=== PATIENT | female | born 1965 | race Caucasian/White ===

== ENCOUNTER → 2017-10-18 | Outpatient (CLI) | payer OTHER ==
[~2017-10-18] MED LIST: ACET1TAB84 PO; ASPI81TA28 PO; BNT20 PO; FLUO20CA35 PO; LORA-741 PO; MELO7.5T5 PO; PANT40TA PO; ROPI0.25 PO; TIZA4CAP PO; TRAM-10 PO; TRAZ50TA35 PO
--- NOTE | 2017-10-18 15:51 | DIAGNOSTIC IMAGING REPORT ---
(CHEST) THORAX WITHOUT CT DOSE: 179.75 mGy.cm HISTORY: Lung nodule ABN CHEST XRAY TECHNIQUE: Multiaxial CT images of the chest were performed without contrast. A dose lowering technique was utilized adhering to the principles of ALARA. COMPARISON: Chest series 10/17/2017 FINDINGS: The lungs are clear. The mediastinal vascular structures are within normal limits. No mediastinal or hilar lymphadenopathy. No pleural effusion or pneumothorax. Limited views of the upper abdomen demonstrate a normal liver and spleen. Nodular density seen on routine chest series appear to relate to overlap technical artifact. IMPRESSION: No acute process. Routine film chest series findings appears to relate to overlap artifact The above report was generated using voice recognition software. It may contain grammatical, syntax or spelling errors. Electronically signed by: Miguel Michele M.D. 10/18/2017 3:49 PM Dictated Date/Time: 10/18/2017 3:47 PM
== END | disposition home or self-care (01) ==
LOC: C.CTS 15:22
PROVIDERS: ATTEND Orthopaedic Surgery Orthopaedic Surgery of the Spine
DX: R93.8 Abnormal findings on diagnostic imaging of other specified body structures (principal)

== ENCOUNTER 2017-10-30 06:08 | Observation (INO) | payer OTHER ==
[2017-10-17 09:49] VITALS: BMI 22.0
--- NOTE | 2017-10-17 10:29 | PAT Medication Instructions ---
Service Date Oct 17, 2017. Current Home Medication List Acetaminophen (Tylenol Arthritis Ext Rel), 1,300 MG PO Q8H PRN for PRN Aspirin (Aspirin Ec), 81 MG PO QAM Dicyclomine HCl (Dicyclomine HCl), 20 MG PO QID PRN for RN Fluoxetine (Prozac), 20 MG PO QAM Lorazepam (Ativan), 0.5 MG PO PRN Meloxicam (Mobic), 15 MG PO PRN Pantoprazole (Protonix), 40 MG PO QAM Ropinirole (Requip), 0.25 MG PO HS Tizanidine (Zanaflex), 4 MG PO BID PRN for PRN Tramadol (Ultram), 50 MG PO Q8H PRN for Pain Trazodone Hcl (Trazodone), 50 MG PO HS Medication Instructions For Your Scheduled Surgery - Check with surgeon for instructions: Meloxicam (Mobic), 15 MG PO PRN Aspirin (Aspirin Ec), 81 MG PO QAM - Hold the following medications 24 hours prior to surgery: Ropinirole (Requip), 0.25 MG PO HS - Hold the following medications the morning of surgery: Dicyclomine HCl (Dicyclomine HCl), 20 MG PO QID PRN for RN Tizanidine (Zanaflex), 4 MG PO BID PRN for PRN - Take the following medications the morning of surgery with a sip of water: Tramadol (Ultram), 50 MG PO Q8H PRN for Pain (okay to take up to 4 hours prior to surgery if needed) Acetaminophen (Tylenol Arthritis Ext Rel), 1,300 MG PO Q8H PRN for PRN(okay to take up to 4 hours prior to surgery if needed) Pantoprazole (Protonix), 40 MG PO QAM Lorazepam (Ativan), 0.5 MG PO PRN Fluoxetine (Prozac), 20 MG PO QAM - Take the following medications as scheduled the night before surgery: Trazodone Hcl (Trazodone), 50 MG PO HS Tramadol (Ultram), 50 MG PO Q8H PRN for Pain (if needed) Tizanidine (Zanaflex), 4 MG PO BID PRN for PRN (if needed) Lorazepam (Ativan), 0.5 MG PO PRN Acetaminophen (Tylenol Arthritis Ext Rel), 1,300 MG PO Q8H PRN for PRN (if needed) Dicyclomine HCl (Dicyclomine HCl), 20 MG PO QID PRN for RN If you have any questions please call us at [phone] or [phone] or [phone]
--- NOTE | 2017-10-17 11:13 | DIAGNOSTIC IMAGING REPORT ---
CHEST 2 VIEWS ROUTINE CLINICAL HISTORY: Preoperative chest COMPARISON STUDY: No previous studies for comparison. FINDINGS: The cardiac and mediastinal contours are normal. There is no evidence of focal pulmonary consolidation. There is no evidence of failure. No pleural effusions are visualized.[There is an 8 mm right lower lobe pulmonary nodule. IMPRESSION: Indeterminate 8 mm right lower lobe pulmonary nodule. A chest CT is recommended in follow-up. Electronically signed by: Jarod Pablo M.D. 10/17/2017 11:11 AM Dictated Date/Time: 10/17/2017 11:07 AM
[2017-10-17 12:17] LABS: BASO % 0.3 %; BASO ABS # 0.04 K/uL (0-0.2); EOS % 2.5 %; EOS ABS # 0.29 K/uL (0-0.5); HEMATOCRIT 39.9 % (37-47); HEMOGLOBIN 13.4 g/dL (12.0-16.0); IG# 0.03 K/uL (0.00-0.02); LYMPH % 22.9 %; LYMPH ABS # 2.68 K/uL (1.2-3.4); MEAN CELL VOLUME 97.1 fL (80-100); MEAN CORPUSCULAR HEMOGLOBIN 32.6 pg (25-34); MEAN CORPUSCULAR HGB CONC 33.6 g/dl (32-36); MEAN PLATELET VOLUME 10.8 fL (7.4-10.4); MONO % 10.5 %; MONO ABS # 1.23 K/uL (0.11-0.59); NEUT % 63.5 %; NEUT ABS # 7.41 K/uL (1.4-6.5); PLATELET COUNT 256 K/uL (130-400); RED CELL DISTRIBUTION WIDTH CV 13.1 % (11.5-14.5); RED CELL DISTRIBUTION WIDTH SD 46.3 fL (36.4-46.3); WHITE BLOOD COUNT 11.68 K/uL (4.8-10.8)
[2017-10-17 12:27] LABS: CALCIUM 8.9 mg/dl (8.5-10.1); CREATININE 0.71 mg/dl (0.60-1.20)
[~2017-10-30] VITALS: Ht 154.9 cm; Wt 53.4 kg
[2017-10-30] VITALS (15 sets, daily range): BP systolic 100–131; BP diastolic 64–82; PULSE 54–94; TEMP 36.3–37.8; O2SAT 94–98; Ht 154.9 cm; Wt 53.4 kg
[~2017-10-30 06:08] MED LIST changes: +CEFAZOLIN 1000MG IV PUSH 5 ML IV SCH; +LACTATED RINGER'S 1000ML 1,000 ML IV SCH
[2017-10-30] MEDS ORDERED: MIDAZOLAM HCL 1 MG/ML 2ML VIAL ONE (06:38)
[2017-10-30] MEDS ORDERED: FENTANYL CITRATE INJ 50 MCG/1 ML 2 ML VIAL ONE ×3 (06:38→08:01)
[2017-10-30] MEDS ORDERED: SODIUM CHLORIDE 0.9% PF 50 ML VIAL ONE (06:53)
[2017-10-30] MEDS ORDERED: BACITRACIN 50000 UNIT VIAL ONE ×2 (06:53→08:04)
--- NOTE | 2017-10-30 07:31 | History & Physical Bridge Note ---
H&P Re-Evaluation Bridge Note: I have examined the patient, reviewed the History & Physical and in the interval since the performance of the History & Physical I have noted the following changes of clinical significance: No changes noted
--- NOTE | 2017-10-30 07:32 | History and Physical ---
History & Physical Date Oct 30, 2017. Chief Complaint Neck and arm pain History of Present Illness The patient is a 52 year old female with complaints of neck and arm pain Additional History Hepatic Disease: No Endocrine Disorder: No Kidney Disease: No Hypertension: No Heart Disease: No Bleeding Tendencies: No Infectious Diseases: No Allergies Coded Allergies: Morphine (Verified Allergy, Unknown, ARMS LEGS TIGHTEN UP-CRAMPING, ) Home Medications Scheduled Aspirin (Aspirin Ec), 81 MG PO QAM Fluoxetine (Prozac), 20 MG PO QAM Lorazepam (Ativan), 0.5 MG PO PRN Meloxicam (Mobic), 15 MG PO PRN Pantoprazole (Protonix), 40 MG PO QAM Ropinirole (Requip), 0.25 MG PO HS Trazodone Hcl (Trazodone), 50 MG PO HS Scheduled PRN Acetaminophen (Tylenol Arthritis Ext Rel), 1,300 MG PO Q8H PRN for PRN Dicyclomine HCl (Dicyclomine HCl), 20 MG PO QID PRN for RN Tizanidine (Zanaflex), 4 MG PO BID PRN for PRN Tramadol (Ultram), 50 MG PO Q8H PRN for Pain Physical Examination Skin: warm/dry, no rash Eyes: normal inspection, EOMI, sclerae normal ENT: normal ENT inspection, pharynx normal Head: normocephalic, atraumatic Neck: supple, no adenopathy, trachea midline Respiratory/Chest: lungs clear, normal breath sounds, no respiratory distress Cardiovascular: regular rate, rhythm, no edema, no murmur Abdomen / GI: normal bowel sounds, non tender Back: normal inspection Extremities: normal inspection, normal range of motion Neurologic/Psych: no motor/sensory deficits, alert, normal reflexes, oriented x 3 Diagnosis Cervical spinal stenosis Plan of Treatment ACDF C5-C6 C6 7
[2017-10-30] MEDS ORDERED: EpHEDrine SULFATE INJ 50 MG/ML AMP IV PRN (08:00)
[2017-10-30] MEDS ORDERED: HYDROmorphone INJ 2 MG/ML SYR/VIAL IV PRN (08:00)
[2017-10-30] MEDS ORDERED: PHENYLEPHRINE 100MCG/ML 5ML SYR IV PRN (08:00)
[2017-10-30] MEDS ORDERED: ONDANSETRON INJ 2 MG/ML 2 ML VIAL IV PRN ×2 (08:00→09:00)
[2017-10-30] MEDS ORDERED: ATROPINE SULFATE 0.1 MG/ML 5ML SYR IV PRN (08:00)
[2017-10-30] MEDS ORDERED: HYDROmorphone INJ 2 MG/ML SYR/VIAL ONE ×3 (08:01→09:17)
[2017-10-30] MEDS ORDERED: FLOSEAL HEMOSTATIC MATRIX 5ML TOP ONE (08:52)
--- NOTE | 2017-10-30 08:59 | [facility] Operative Report ---
Operative Report Operative Date Oct 30, 2017. Pre-Operative Diagnosis Cervical Spinal Stenosis Post-Operative Diagnosis Same as preoperative Procedure(s) Performed #1 anterior cervical discectomy bilateral foraminotomies C5 6 and C6 7. #2 anterior cervical arthrodesis C5 6 and C6 7. #3 placement of cortical allograft filled with DBM 7 mm at C5 6 and 6 mm at C6 7. #4 application of Paul plate and screws C5 [address] Dylan Ernandez [employer] Surgeon(s) Angella Hanna PA-C Estimated Blood Loss 50ml Findings Cervical spinal stenosis Specimens None per surgeon Description of Procedure Patient was met with preoperatively case discussed all questions addressed. After informed consent obtained patient was taken to the operative suite underwent intubation and placed in a supine position on the Diogo table with the head in the [place] headholder. All bony prominences well-padded ice inspected to ensure no external pressure placed upon them. At this point the anterior cervical spine was prepped and draped in normal sterile fashion. With the assistance of fluoroscopy identified the C6 vertebral body. Transverse incision was placed on the right anterior aspect of the cervical spine overlying incision. Sharp dissection with the assistance of bipolar electrocautery was performed onto an expose the anterior cervical spine from C5 to C7. Self retaining retractors placed. Then performed a complete discectomy of C5 6 out to the uncovertebral joints bilaterally. [place] distracting pins were utilized to assist us visualization. removed all posterior and fibrous longitudinal ligament and bilateral foraminotomies performed. Endplates burred to subcortical bleeding bone and a 7 mm cortical allograft filled with DBM tapped in position. I then proceeded to C67. Again a complete discectomy performed out to the uncovertebral joints laterally. Tian distracting pins utilized to assist in visualization. I removed all posterior annular fibers longitudinal ligament and bilateral foraminotomies performed. An placed bur to subcortical bleeding bone and a 6 mm cortical allograft filled with DBM tapped in position. Distraction apparatus was removed and a Paul plate and screws applied with the assistance of fluoroscopy. Incision was then copious irrigated explored and sure there is no damage to surrounding structures remaining bleeding. 10 round LEONEL drain inserted. The incision then closed with 2-0 Vicryl in the fascia and 4-0 Monocryl for final skin closure. Steri-Strips sterile dressing was placed. Patient was taken to PACU stable condition. Please note Angella Willard was present at the entire procedure involved in patient positioning complex portions of the surgery and final skin closure. I attest to the content of the Intraoperative Record and any orders documented therein. Any exceptions are noted below.
[2017-10-30] MEDS ORDERED: RACEPINEPHRINE 2.25% NEBU SOLN 0.5 ML VIAL INH PRN (09:00)
[2017-10-30] MEDS ORDERED: LORAZEPAM 0.5 MG TAB PO PRN (09:00)
[2017-10-30] MEDS ORDERED: DO NOT ADMINISTER FLU VACCINE PRN (09:00)
[2017-10-30] MEDS ORDERED: CEFAZOLIN IV 1,000 MG in DEXTROSE 5% 50ML 50 ML IV SCH (09:00)
[2017-10-30] MEDS ORDERED: LORAZEPAM INJ 0.5 MG in SYRINGE 0.75 ML IV PRN (09:00)
[2017-10-30] MEDS ORDERED: DEXAMETHASONE INJ 8 MG in SYRINGE 0 ML IV PRN (09:00)
[2017-10-30] MEDS ORDERED: MAGNESIUM HYDROXIDE SUSP 30 ML UDC PO PRN (09:00)
[2017-10-30] MEDS ORDERED: NALOXONE HCL 0.4 MG/1 ML VIAL/CARP IV PRN (09:00)
[2017-10-30] MEDS ORDERED: DO NOT ADMINISTER PNEUMOCOCCAL VACCINE PRN (09:00)
[2017-10-30] MEDS ORDERED: DEXAMETHASONE SOD INJ 4 MG/ML VIAL ONE (09:05)
[2017-10-30] MEDS ORDERED: GLYCOPYRROLATE INJ 0.2 MG/ML VIAL ONE (09:05)
[2017-10-30] MEDS ORDERED: NEOSTIGMINE METHYLSULFATE 1 MG/ML 10ML VIAL ONE (09:05)
[2017-10-30] MEDS ORDERED: PROPOFOL IV EMULSION 10 MG/ML 20 ML VIAL IV ONE (09:05)
[2017-10-30] MEDS ORDERED: ONDANSETRON INJ 2 MG/ML 2 ML VIAL ONE (09:05)
[2017-10-30] MEDS ORDERED: LIDOCAINE HCL 2% 2 ML VIAL (20MG/ML) ONE (09:05)
[2017-10-30] MEDS ORDERED: ESMOLOL HCL 10 MG/ML 10 ML VIAL ONE (09:05)
[2017-10-30] MEDS ORDERED: PHENYLEPHRINE 100MCG/ML 5ML SYR ONE (09:05)
[2017-10-30] MEDS ORDERED: ROCURONIUM BROMIDE 10 MG/ML 5 ML VIAL IV ONE (09:05)
[2017-10-30] MEDS ORDERED: HYDROmorphone INJ 1 MG/ML SYR ONE (09:33)
--- NOTE | 2017-10-30 09:44 | DIAGNOSTIC IMAGING REPORT ---
CERVICAL 2 OR 3 VIEWS CLINICAL HISTORY: ACDF C5-7 COMPARISON STUDY: No previous studies for comparison. FLUOROSCOPY TIME: 10 seconds. FINDINGS: 2 fluoroscopic images were submitted for interpretation. These images demonstrate a C5-C7 anterior discectomy and fusion. Hardware is intact. Endotracheal and nasogastric tubes are partially imaged. IMPRESSION: Fluoroscopic images demonstrating a C5-C7 anterior discectomy and fusion. Electronically signed by: Vadim Cronin M.D. 10/30/2017 9:42 AM Dictated Date/Time: 10/30/2017 9:41 AM
[2017-10-30] MEDS ORDERED: SCOPOLAMINE 1.5 MG TDSY TD ONE ×2 (09:51→10:15)
[2017-10-30] MEDS ORDERED: NURSING VERBAL MED ORDER ONE (09:55)
--- NOTE | 2017-10-30 10:14 | Anesthesiology Progress Note ---
Anesthesia Post Op Note Date & Time Oct 30, 2017 at 10:13 Vital Signs Pain Intensity: 4 Vital Signs Past 12 Hours Date Time Temp Pulse Resp B/P (MAP) Pulse Ox O2 Delivery O2 Flow Rate FiO2 10/30/17 09:50 36.1 78 16 146/80 100 Nasal Cannula 4 10/30/17 09:40 73 16 138/80 100 Nasal Cannula 4 10/30/17 09:30 71 16 138/72 100 Nasal Cannula 4 10/30/17 09:20 78 16 130/80 100 Nasal Cannula 4 10/30/17 09:13 36.0 94 16 133/76 100 Nasal Cannula 4 10/30/17 06:34 36.4 70 20 112/78 (89) 97 Notes Mental Status: alert / awake / arousable, participated in evaluation Pt Amnestic to Procedure: Yes Nausea / Vomiting: adequately controlled Pain: adequately controlled Airway Patency, RR, SpO2: stable & adequate BP & HR: stable & adequate Hydration State: stable & adequate Anesthetic Complications: no major complications apparent
[2017-10-30] MEDS ORDERED: PROMETHAZINE HCL INJ 6.25 MG in SODIUM CHLORIDE 0.9% 50ML 50 ML IV ONE (10:15)
[2017-10-30] MEDS ORDERED: IV FLUIDS COMPLETED PRN (11:15)
[2017-10-30] MEDS: OXYCODONE HCL IR 5 MG TAB (IMMEDIATE RELEASE) PO PRN ×3 (11:26→20:41)
[2017-10-30] MEDS: DiphenhydrAMINE HCL 50 MG/ML VIAL IV PRN ×2 (11:27→18:10)
[2017-10-30] MEDS: LACTATED RINGER'S 1000ML 1,000 ML IV SCH ×2 (11:33→18:08)
[2017-10-30] MEDS: DOCUSATE SODIUM 100 MG CAP PO SCH ×2 (11:57→20:41)
[2017-10-30] MEDS: ACETAMINOPHEN IV 1,000 MG in EMPTY BAG 0 ML IV PRN (14:27)
[2017-10-30] MEDS ORDERED: RXC5 PO (14:58)
--- NOTE | 2017-10-30 14:59 | Discharge Instructions ---
Discharge Instructions Date of Service Oct 30, 2017. Admission Reason for Admission: Cervical Spinal Stenosis Discharge Discharge Diagnosis / Problem: cervical stenosis Discharge Goals Goal(s): Improve function Activity Recommendations Activity Limitations: per Instructions/Follow-up section . Instructions / Follow-Up Instructions / Follow-Up ACTIVITY RECOMMENDATIONS: SELF CARE INSTRUCTIONS AFTER CERVICAL FUSIONS 1. No smoking. Smoking drastically decreases the chance of a solid fusion. 2. No bending, lifting more than 5 pounds, or twisting (roll like a log when turning in bed). 3. You may shower 3 days after surgery. Thoroughly dry wound. Do not soak in the tub. 4. Cervical collar: Must be worn at all times including sleeping. You may remove the brace only to bath, eat and if you are sitting in a recliner. 5. Please walk as much as you can for exercise. Gradually increase the distance that you walk as your endurance increases. SPECIAL CARE INSTRUCTIONS: VERY IMPORTANT TO READ AND REVIEW A. Do not take any anti-inflammatory medications (i.e. Indocin, Advil, Aspirin, Naprosyn, Aleve, Motrin, etc.) as these may inhibit the chance of a solid fusion. Tylenol is okay to take. B. Your surgical incision has been closed with a cosmetic suture under the skin that will dissolve in about 6 weeks. In 14 days, you can use a pair of clean scissors and cut the suture that is left outside of the skin at the ends of your incision. C. Complications are uncommon, but please contact us if you have any signs or symptoms of: 1. wound infection (fever higher than 102.5 degrees F, redness, separation of wound, drainage, or increasing pain from the incision) 2. blood clots in legs (pain, swelling, redness and warmth in legs) 3. urinary tract infection (fever higher than 102.5 degrees, burning upon urination or increased frequency of urination) 4. nerve problems (inability to walk on your toes or heels, numbness, loss of bowel or bladder control) 5. any other symptoms that concern you. D. Please call the office at if you have any concerns or questions about your operation or recovery. MANAGING PAIN AFTER SPINAL SURGERY 1. Narcotic medication is intended for short-term use and will be provided for surgical pain. Surgical pain usually lasts for a period of 4-6 weeks. Narcotic medication includes Percocet, Vicodin, Darvocet, Tylenol #3 or Lortab. 2. Longer-term pain is more appropriately treated with non-narcotic medication such as Tylenol ES. 3. Muscle spasm is not appropriately treated with narcotics. Muscle relaxers such as Soma, Flexeril or Skelaxin can be used along with Tylenol ES. 4. Remember that we all live with some "aches and pains". This is not unusual or uncommon after an injury or as we get older. 5. We will provide appropriate medication within the normal guidelines of their prescribed use. We will also be very cautious and aware of potential abuse and extended duration of patients' medication needs. 6. Please allow 2-3 days to process refills. Prescriptions will not be mailed but must be picked up at the office. FOLLOW UP VISIT: Keep your scheduled follow-up appointment. Any questions, please call the office at . Current Hospital Diet Patient's current hospital diet: Clear Liquid Diet Discharge Diet Recommended Diet: Regular Diet Procedures Procedures Performed: #1 anterior cervical discectomy bilateral foraminotomies C5 6 and C6 7. #2 anterior cervical arthrodesis C5 6 and C6 7. #3 placement of cortical allograft filled with DBM 7 mm at C5 6 and 6 mm at C6 7. #4 application of Paul plate and screws C5 6 C67 Pending Studies Studies pending at discharge: no Medical Emergencies . Who to Call and When: Medical Emergencies: If at any time you feel your situation is an emergency, please call 911 immediately. . Non-Emergent Contact Non-Emergency issues call your: Primary Care Provider . "Provider Documentation" section prepared by Dylan Ernandez. . VTE Core Measure Inpt VTE Proph given/why not?: Liam Maguire, SCD's
[2017-10-30] MEDS: CHECK SCOPOLAMINE PATCH PLACEMENT SCH (15:37)
[2017-10-30] MEDS: CEFAZOLIN IV 1,000 MG in SYRINGE 2.5 ML IV SCH (15:37)
[2017-10-30] MEDS: HYDROmorphone INJ 0.5 MG/0.5 ML SYR IV PRN ×2 (18:07→22:25)
[2017-10-31] VITALS (9 sets, daily range): BP systolic 112–125; BP diastolic 70–77; PULSE 54–71; TEMP 36.8–37.3; O2SAT 93–97
[2017-10-31] MEDS: CEFAZOLIN IV 1,000 MG in SYRINGE 2.5 ML IV SCH ×2 (00:07→07:58)
[2017-10-31] MEDS: CHECK SCOPOLAMINE PATCH PLACEMENT SCH ×2 (00:09→07:45)
[2017-10-31] MEDS: ACETAMINOPHEN IV 1,000 MG in EMPTY BAG 0 ML IV PRN (00:28)
[2017-10-31] MEDS: DiphenhydrAMINE HCL 50 MG/ML VIAL IV PRN (01:57)
[2017-10-31] MEDS: OXYCODONE HCL IR 5 MG TAB (IMMEDIATE RELEASE) PO PRN ×3 (01:57→11:07)
[2017-10-31] MEDS: HYDROmorphone INJ 0.5 MG/0.5 ML SYR IV PRN ×2 (03:48→07:58)
[2017-10-31] MEDS: DOCUSATE SODIUM 100 MG CAP PO SCH (07:58)
--- NOTE | 2017-10-31 08:37 | Discharge Summary ---
Orthopedic Discharge Summary Admission Date/Reason Oct 30, 2017 at 09:02 Cervical Spinal Stenosis. Discharge Date/Disposition Oct 31, 2017 Home Diagnosis Principal Diagnosis: Cervical spinal stenosis Admission Physical Exam As per Admitting History & Physical. Hospital Course Patient underwent cervical decompression and fusion tolerated this well as taken to the orthopedic floor postop. Postoperatively she swallowing well. Arm symptoms are markedly improved. Substernally discharge home. Discharge orders and instructions can be found in the chart for further review. Discharge Instructions Please refer to the electronic Patient Visit Report (Discharge Instructions) for additional information.
[2017-11-01] MEDS ORDERED: BISACODYL 5 MG TABEC PO PRN (06:00)
[2017-11-01] MEDS ORDERED: BISACODYL 10 MG SUPP PR PRN (06:00)
[2017-11-01] MEDS ORDERED: POLYETHYLENE (MIRALAX) 17 GM PACK PO SCH (09:00)
[2017-11-02] MEDS ORDERED: SCOPOLAMINE 1.5 MG TDSY TD SCH (09:00)
== END 2017-10-31 11:53 | disposition home or self-care (01) ==
LOC: C.ACU 06:08 → C.3E 09:02 → ENRESERV 09:54
PROVIDERS: ADMIT Orthopaedic Surgery Orthopaedic Surgery of the Spine; ATTEND Orthopaedic Surgery Orthopaedic Surgery of the Spine
DX: M48.02 Spinal stenosis, cervical region (principal); Z79.82 Long term (current) use of aspirin; Z79.899 Other long term (current) drug therapy